=== PATIENT | male | born 1940 | race Caucasian/White ===

== ENCOUNTER 2016-11-01 21:48 | Inpatient (IN) | payer OTHER ==
--- NOTE | ~2016-11-01 | FU ---
[facility] Nutrition Therapy DATE: 11/05/16 Patient: LILLIAN ALBERT Physician: YUDITH Address: [address] [place] [address] Room/Bed: [address], Zip: [place] [address] Admit Date: 11/02/16 Date of : 39 Height: 5 10 Weight: 225 102.5 NUTRITION MONITORING/FOLLOW-UP: Reason: PT SEEN FOR FOLLOW-UP DX: CARDIAC ARREST, ACUTE RESP FAILURE Anthropometrics: 5'10", WT: 225# (102 KG), BMI: 32.3 -ADMIT WEIGHT: 105# Labs: K+:2.8, CA+:7.3, ALB: 2.6, AST: 368, ALT: 561, M.0, GFR: 58.0 Meds: PROPOFOL, NACL, FUROSEMIDE, PROTONIX, MAG SULFATE I&O's: 1100/5425 Skin: BLE/FEET 1+ EDEMA; BLE GENERALIZED EDEMA Estimated Nutrition Needs: [id number] KCAL 113-151 G PRO Assessment: CHART REVIEWED AND EVENTS NOTED. PT SEEN FOR FOLLOW-UP. PT CONTINUES TO BE INTUBATED AND SEDATED (PROPOFOL AT RATE OF 6.3 ML/HR PROVIDING ~166 KCAL FROM LIPIDS). ENTERAL NUTRITION SUPPORT HAS NOT BEEN INITIATED X 3 DAYS. PER RN AND CHART, POOR PROGNOSIS NOTED. NO FAMILY IN ROOM AT THIS TIME. RD TO CONTINUE TO FOLLOW. Dx: INADEQUATE PROTEIN-ENERGY INTAKE R/T VENT DEPENDENCE, CURRENT CONDITION AEB NPO.-ACTIVE Intervention: 1. NPO X 3 DAYS Monitoring, Evaluation and Goals: 1. ENTERAL NUTRITION; PROVIDE >80% TOTAL VOLUME X 24 HOURS-NOT MET/UNMEASURED 2. LABS; WNL-NOT MET 3. SKIN; PREVENT SKIN BREAKDOWN-IN PROGRESS MONITOR: -PLANS FOR SUPPORT -WEIGHTS -LABS Recommendations: 1. ONCE PT HEMODYNAMICALLY STABLE, BEGIN ALTERNATIVE NUTRITION SUPPORT VIA DHT OF JEVITY 1.5 @ 20 ML/HR, ADVANCE 10 ML q 8 HOURS TO GOAL RATE OF 45 ML/HR + SUGAR-FREE PROSTAT TID [facility] Nutrition Therapy DATE: 11/05/16 Patient: LILLIAN ALBERT Physician: YUDITH Address: [address] [place] [address] Room/Bed: [address], Zip: [place] [address] Admit Date: 11/02/16 Date of : 39 Height: 5 10 Weight: 225 102.5 + SEDATION -PROVIDES 2086 KCAL, 114 G PRO, 821 ML FREE H20 ADD FREE H20 FLUSHES PER MD RD WILL F/U PER PROTOCOL PT IS SEVERELY COMPROMISED Status: Respectfully, Chandra Stallings, RD, LD [facility] cc: client file
--- NOTE | ~2016-11-01 | CR72 ---
[facility] A Service of [facility] & [facility] RADIOLOGY TEXT RESULTS PATIENT: LILLIAN ALBERT LOCATION: [place] [address]-03 : 39 UNIT #: [id number] AGE: [address]: Latisha Guido MD SEX: M ORDER DR: [id number] [facility] [address]. [place], [place] [address] [id number] I MR#: [id number] Acc #: [id number] NAME: LILLIAN ALBERT : 1940 SEX: M STUDY DATE/TIME: 11/02/2016 6:44 UNIT: [facility] ROOM: [facility] STUDY DESCRIPTION: CR Chest Single View Portable Attending Physician: Latisha Guido M.D. Ordering Physician: Moshe Lancaster M.D. Primary Care Physician: Dayo Valle M.D. MEDICAL IMAGING REPORT This report is preliminary unless electronic signature is present EXAM Portable chest 11/02/2016 HISTORY Respiratory failure, intubated, follow up infiltrates. FINDINGS The cardiac and mediastinal structures are stable compared with 11/02/2016 at 12:41 a.m. There has been no change in the position of the life support equipment. Atelectatic changes at the lung bases. Lungs are otherwise clear. There are no pleural effusions. IMPRESSION No interval change compared with the previous chest radiograph performed earlier today at 12:41 a.m. Dictated by... Hakan Natarajan M.D. THIS IS AN ELECTRONICALLY VERIFIED REPORT Hakan Natarajan M.D. at 11/02/2016 11:22 AM ACE/katie TD: 11/02/2016 09:55 JOB #: [id number] MEDICAL IMAGING REPORT Page 1 of 1 COPY
--- NOTE | ~2016-11-01 | EKG ---
PATIENT: LILLIAN ALBERT UNIT #: [id number] Ventricular Rate: 102 BPM Atrial Rate: 49 BPM QRS Duration: 86 ms Q-T Interval: 380 ms QTC Calculation(Bezet): 495 ms Calculated R [place]: 7 degrees Calculated T [place]: 170 degrees Diagnosis Line: Atrial fibrillation with rapid ventricular Diagnosis Line: response Diagnosis Line: Low voltage QRS Diagnosis Line: T wave abnormality, consider anterior ischemia or Diagnosis Line: digitalis effect Diagnosis Line: Prolonged QT Diagnosis Line: Abnormal ECG Diagnosis Line: No previous ECGs available Diagnosis Line: Confirmed by KOKI DOWNING MD ([id number]) on Diagnosis Line: 11/04/2016 10:46:32 AM INTERPRETING MD: ROSSANA
--- NOTE | ~2016-11-01 | EKG ---
PATIENT: LILLIAN ALBERT UNIT #: [id number] Ventricular Rate: 106 BPM Atrial Rate: 106 BPM P-R Interval: 196 ms QRS Duration: 108 ms Q-T Interval: 360 ms QTC Calculation(Bezet): 478 ms P [place]: 78 degrees Calculated R [place]: 20 degrees Calculated T [place]: 91 degrees Diagnosis Line: Sinus tachycardia with frequent Premature Diagnosis Line: ventricular complexes Diagnosis Line: Low voltage QRS Diagnosis Line: Nonspecific ST and T wave abnormality Diagnosis Line: Abnormal ECG Diagnosis Line: No previous ECGs available Diagnosis Line: Confirmed by MAI ELMORE MD ([id number]) on 11/03/2016 Diagnosis Line: 5:36:51 AM INTERPRETING MD: CATARINA MELARA
--- NOTE | ~2016-11-01 | CT69 ---
[facility] A Service of [facility] RADIOLOGY TEXT RESULTS PATIENT: LILLIAN ALBERT LOCATION: CICCU2 CICCU2 : 38 UNIT #: [id number] AGE: [address]: Latisha Guido MD SEX: M ORDER DR: [id number] [facility] [address]. [place], [place] [address] [id number] E MR#: [id number] Acc #: [id number] NAME: LILLIAN ALBERT : 1940 SEX: M STUDY DATE/TIME: 11/01/2016 23:59 UNIT: [facility]ER[facility] ROOM: STUDY DESCRIPTION: CT Head W Contrast Attending Physician: Moshe Lancaster M.D. Ordering Physician: Moshe Lancaster M.D. Primary Care Physician: Dayo Valle M.D. MEDICAL IMAGING REPORT This report is preliminary unless electronic signature is present EXAM CT head with contrast INDICATION Cardiac arrest tonight. PROCEDURE Contrast-enhanced CT of the head. This CT exam was performed with one or more of the following radiation dose reduction techniques: automatic exposure control, adjustment of mA and/or kV according to patient size, and iterative reconstruction. COMPARISON None. FINDINGS No hemorrhage when allowing for presence of contrast. No midline shift, extraaxial collection or hydrocephalus. No convincing evidence for an acute early subacute large territory infarct. 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 No depressed calvarial fracture. The paranasal sinuses and mastoid air cells are clear. IMPRESSION No acute intracranial findings. No abnormal intracranial enhancement. Dictated by... Gerson Eden M.D. THIS IS AN ELECTRONICALLY VERIFIED REPORT Gerson Edne M.D. at 11/02/2016 10:01 PM [facility] A Service [facility] RADIOLOGY TEXT RESULTS PATIENT: LILLIAN ALBERT LOCATION: CICCU2 CICCU2 : 39 UNIT #: [id number] AGE: [address]: Latisha Guido MD SEX: M ORDER DR: AL/keily TD: 11/02/2016 00:54 JOB #: [id number] MEDICAL IMAGING REPORT Page 1 of 1 COPY
--- NOTE | ~2016-11-01 | DS ---
Unit #: [id number] #: [id number] Patient: LILLIAN ALBERT [id number] [facility] [address] [place], [place] [address] [id number] I MR#: [id number] NAME: LILLIAN ALBERT ROOM: 229 Age: 76 Sex: M Admission Date: 11/02/2016 : 1940 Discharge Date: 11/10/2016 Attending Physician: Latisha Guido M.D. Primary Care Physician: Dayo Valle M.D. DISCHARGE SUMMARY SUMMARY FINAL DIAGNOSES 1. Status post cardiac arrest. 2. Acute respiratory failure. 3. Anoxic brain injury. 4. Non ST elevation myocardial infarction. 5. Left ventricular dysfunction ejection fraction of 10%. 6. Systolic congestive heart failure. 7. Aspiration pneumonia. 8. Acute kidney injury. HOSPITAL COURSE Patient was discharge from [facility] after having aortic aneurysm repair done. Patient had complex intravascular repair and discharged on 10/24/2016. The patient was doing well until the day before admission to our hospital. He suddenly complained of shortness of breath and passed out. The patient was resuscitated and was brought to the emergency room at [facility] and was admitted in ICU. The patient's admitting diagnosis was resuscitated V-tach arrest, status post shock, acute non Q VT, acute hypoxic respiratory failure, aspiration and likely anoxic brain injury. Patient was admitted to ICU. The patient's was discussed with at length. Patient's decided for DNR status and he on 11/10/2016. All throughout hospital she was very much aware of patient's poor prognosis and critical admission on admission to hospital. Dictated by... Padmini Maria TD: 12/15/2016 13:15 JOB #: [id number] Unit #: [id number] #: [id number] Patient: LILLIAN ALBERT DISCHARGE SUMMARY Page 1 of 1 X Latisha Guido MD DISCHARGE SUMMARY
--- NOTE | ~2016-11-01 | CT71 ---
[facility] A Service of [facility] & [facility] RADIOLOGY TEXT RESULTS PATIENT: LILLIAN ALBERT LOCATION: [address] : [birth year] UNIT #: [id number] AGE: [address]: Latisha Guido MD SEX: M ORDER DR: [id number] [facility] [address] [place], [place] [address] [id number] I MR#: [id number] Acc #: [id number] NAME: LILLIAN ALBERT : 1940 SEX: M STUDY DATE/TIME: 11/05/2016 13:16 UNIT: [facility] ROOM: [facility] STUDY DESCRIPTION: CT Head Wo Contrast Attending Physician: Latisha Guido M.D. Ordering Physician: Christina Dooley A.P.R.N. Primary Care Physician: Dayo Valle M.D. MEDICAL IMAGING REPORT This report is preliminary unless electronic signature is present EXAM CT of the head without contrast. INDICATIONS Anoxic brain injury, patient in full arrest. He has sluggish pupils. This is a re-scan. His original CT was performed on November 01, 2016. It did not show any acute findings. TECHNIQUE Axial CT imaging was obtained from the vertex of the skull through the skull base. No intravenous contrast material was administered. This CT exam was performed with one or more of the following radiation dose reduction techniques: automatic exposure control, adjustment of mA and/or kV according to patient size, and iterative reconstruction. FINDINGS No acute intracranial hemorrhage is identified. This patient is noted have diffuse cerebral atrophy with compensatory ventricular dilatation which is in keeping with the age of 76. There is some mild periventricular deep white matter microangiopathic disease, but the patient does appear to maintain normal jeffrey-white matter differentiation. There is evidence of an old infarct involving the left basal ganglia. This appears unchanged when compared to the prior exam. No new areas of decreased attenuation are seen. There is no midline shift or mass effect. There is some atherosclerotic involvement of the cavernous carotid arteries. There is some mucosal thickening seen within the ethmoid sinuses as well as within the sphenoid sinuses bilaterally. Mastoid air cells appear clear. No aggressive osseous abnormalities are seen and there are no focal soft tissue abnormalities. IMPRESSION [facility] A Service of [facility] & [facility] RADIOLOGY TEXT RESULTS PATIENT: LILLIAN ALBERT LOCATION: [facility] CICCU2-03 : 39 UNIT #: [id number] AGE: [address]: Latisha Guido MD SEX: M ORDER DR: 1. No acute intracranial process identified. Specifically, there is no evidence of acute hemorrhage, mass lesion or acute infarct. 2. Diffuse cerebral atrophy, as well as an area of encephalomalacia identified within the left basal ganglia. This is unchanged when compared to the November 01 examination. Dictated by... Paulina Ritchie M.D. THIS IS AN ELECTRONICALLY VERIFIED REPORT Paulina Ritchie M.D. at 11/06/2016 2:48 PM AFF/japple TD: 11/05/2016 21:16 JOB #: [id number] MEDICAL IMAGING REPORT Page 1 of 1 COPY
--- NOTE | ~2016-11-01 | CT2 ---
[facility] A Service of [facility] & [facility] RADIOLOGY TEXT RESULTS PATIENT: LILLIAN ALBERT [facility] 39 UNIT #: [id number] AGE: [address]: Latisha Guido MD SEX: M ORDER DR: [id number] [facility] [address]. [place], [place] [address] [id number] E MR#: [id number] Acc #: [id number] NAME: LILLIAN ALBERT : 1940 SEX: M STUDY DATE/TIME: 11/01/2016 22:37 UNIT: [facility] ROOM: STUDY DESCRIPTION: CT Abd and Pelv W Cont Attending Physician: Moshe Lancaster M.D. Ordering Physician: Moshe Lancaster M.D. Primary Care Physician: Dayo Valle M.D. MEDICAL IMAGING REPORT This report is preliminary unless electronic signature is present EXAM CT abdomen and pelvis with contrast INDICATIONS Cardiac arrest tonight. Patient status post iliac stent surgery one week ago. PROCEDURE Contrast-enhanced CT of the abdomen and pelvis. This CT exam was performed with one or more of the following radiation dose reduction techniques: automatic exposure control, adjustment of mA and/or kV according to patient size, and iterative reconstruction. COMPARISON Refer to the separately dictated chest CT for thoracic findings. ABDOMEN WITH CONTRAST: Liver and spleen show no acute abnormality. Adrenal glands unremarkable. Pancreas atrophic. There is mild pericholecystic fluid as well as periportal edema. Portal vein is patent. Bowel loops are nondilated. Kidneys show heterogeneous enhancement pattern. Chronicity of this finding is not clear. Patient is status post stent repair of an abdominal aortic aneurysm. There are stents in the proximal superior mesenteric and renal arteries. Aneurysm sac measures up to 6.8 cm. There is some enhancement within the aneurysm sac suggesting an endoleak. Stents extend into the iliac vessels. PELVIS WITH CONTRAST: Bladder decompressed by a Arrington catheter. Postsurgical change in the right and left inguinal regions. There is a small fluid collection in the left inguinal region that measures approximately 4 cm. No aggressive-appearing bone lesion. STS. [facility] A Service of [facility] & [facility] RADIOLOGY TEXT RESULTS PATIENT: LILLIAN ALBERT LOCATION: [facility] CICCU2-03 : 39 UNIT #: [id number] AGE: [address]: Latisha Guido MD SEX: M ORDER DR: IMPRESSION 1. The patient is status post stent graft repair of an infrarenal abdominal aortic aneurysm. There is some apparent enhancement in the aneurysm sac suggesting an endoleak. There is no precontrast imaging with this study. 2. The aneurysm sac measures 6.8 cm in diameter. No prior studies for comparison. 3. Skin jerry in the right left inguinal regions. There is a collection in the left inguinal region that measures up to 4 cm. It may be within recent postoperative limits. 4. Heterogeneous enhancement pattern of the kidneys, of uncertain chronicity. 5. Refer to the separately dictated chest CT for thoracic findings. Dictated by... Gerson Eden M.D. THIS IS AN ELECTRONICALLY VERIFIED REPORT Gerson Eden M.D. at 11/02/2016 10:01 PM AL/keily TD: 11/02/2016 00:44 JOB #: [id number] MEDICAL IMAGING REPORT Page 1 of 1 COPY
--- NOTE | ~2016-11-01 | CO ---
Unit #: [id number] #: [id number] Patient: LILLIAN ALBERT [id number] [facility]. [address] [place], [place] [address] [id number] I MR#: [id number] NAME: LILLIAN ALBERT ROOM: CIC2 Age: 76 Sex: M Admission Date: 11/02/2016 : 1940 Attending Physician: Latisha Guido M.D. Primary Care Physician: Dayo Valle M.D. CONSULTATION REPORT REVISED/ADDENDED REASON FOR CONSULTATION Assistance with management for resuscitated ventricular fibrillation arrest. HISTORY OF PRESENT ILLNESS This is a 76-year-old white male who has a history of recently diagnosed with follicular lymphoma. It is metastatic but slow growing. October 20, 2016, had abdominal aortic aneurysm repair that was 6.8 cm and an endovascular repair with Endograft to renal arteries bilaterally and crossing an occluded external iliac done by Merlin Kent M.D. with [facility]. The patient was discharged on October 24, 2016. Records that were obtained from that facility reports that he was seen by Dr. Lalito Wilcox, stereo operator, due to having an elevated troponin. There is no other indications of any other testing or information from a cardiac standpoint. Information is provided by the staff records and by the over the telephone today. The patient is currently intubated and unable to answer questions. According to the , this past Wednesday he was doing well. He had physical therapy come to the house and he had home health nurse evaluate him and he was doing well. On Wednesday, the noticed he was acting a little confused and seemed to be weak. Yesterday, he woke up and he continued to be confused, increased periods of confusion, and she said she noticed his breathing was becoming more labored. As the day progressed, his dyspnea worsened. She called EMS. When they arrived, patient was becoming obtunded. They did witness a ventricular fibrillation arrest. He was shocked x1 and had a total of 4 mg of IV epi. They successfully returned rhythm to sinus rhythm. From the , there is no indication that he is having any chest pain, pain in his neck, bilateral jaws, shoulders, arms, or elbows. There is no indication he was dizzy, presyncope, or syncope. She did not know of any increased cough, fever, or chills he was experiencing. No nausea, vomiting, diarrhea, or abdominal pain. Cardiology has been consulted to assist with evaluation and management. The patient is in intensive care unit. He is intubated and poorly responsive. PAST MEDICAL HISTORY 1. History of follicular lymphoma, is metastatic, slow growing. 2. Diabetes mellitus type 2. 3. Hypertension. 4. Hyperlipidemia. 5. COPD. 6. Nicotine abuse. Unit #: [id number] #: [id number] Patient: LILLIAN ALBERT 7. BPH. 8. Gastroesophageal reflux disease. 9. Vitamin D deficiency. 10. October 20, 2016, patient had an abdominal aortic aneurysm repair that was 6.8 cm, endovascular repair with Endograft to the renal arteries bilaterally and crossing an occluded external iliac. 11. Coronary artery disease, reported that increased troponin during hospitalization at [facility], October 20 to October 24, 2016. Had been followed by Dr. Lalito Wilcox, cardiology. 12. History of a solitary pulmonary nodule. 13. History of anemia. 14. History of paroxysmal supraventricular tachycardia. 15. History of paroxysmal atrial fibrillation. According to , he was told his heartbeat gets irregular. He was on Eliquis. 16. Peripheral vascular disease. 17. Peripheral arterial disease. 18. History of alcohol abuse but occasionally drinks a scotch but nothing heavily. 19. Reported quit smoking but was having occasional cigarette. PAST SURGICAL HISTORY 1. October 20, 2016, had abdominal aortic aneurysm. The procedure was a bilateral femoral cutdown and left axillary cutdown, SMA stent, [place] EVAR with bilateral renal artery stent grafts repair of left internal iliac aneurysm with a GORE VALENTIN stent grafts left internal iliac stent extension cuff left common iliac extension cuff left external iliac Viabahn stent. 2. Cataract surgery. 3. Appendectomy. 4. Tonsillectomy. 5. Vasectomy. 6. Umbilical hernia repair. HOME MEDICATIONS 1. Aspirin 81 mg p.o. daily. 2. Zyloprim 100 mg p.o. daily. 3. Hydrocodone/acetaminophen 10/325 one tablet p.o. every six hours p.r.n. 4. Tradjenta 5 mg p.o. daily. 5. Protonix 40 mg p.o. daily. 6. Crestor 20 mg p.o. daily. 7. Flomax 0.4 mg p.o. daily. 8. Vitamin D3 of 50,000 units p.o. once weekly. 9. Albuterol every four hours p.r.n. 10. Ventolin two puffs inhalation twice daily p.r.n. for shortness of breath. 11. Alprazolam 1 mg p.o. twice daily. 12. Eliquis 5 mg p.o. twice daily. 13. Carvedilol 3.125 mg every 12 hours. 14. Duloxetine 60 mg p.o. daily. 15. Glucophage 1000 mg p.o. twice daily. 16. Montelukast 10 mg p.o. at bedtime. 17. Rythmol 150 mg every eight hours. 18. Daliresp 500 mg p.o. daily. ALLERGIES No known drug allergies. Unit #: [id number] #: [id number] Patient: LILLIAN ALBERT SOCIAL HISTORY The patient lives with his spouse. Patient reportedly had quit smoking about four months ago but the says he has occasional cigarettes but nothing heavy. He used to be a heavy drinker, used to drink scotch and wine but now only has an occasional drink, does not have something every day. No illicit drug abuse. FAMILY HISTORY Unavailable. REVIEW OF SYSTEMS See details in HPI. PHYSICAL EXAMINATION GENERAL: On exam, Mr. Albert is a 76-year-old white male. He is intubated. Sedation has been turned off. He is myoclonic. Has myoclonic activity. Dictated by... Imelda RodgersPKerriRKerriN. for Georgina Harrison M.D. LYLY/torie TD: 11/02/2016 16:52 JOB #: [id number] ADDENDUM Dr. Chiang, the complaint evaluation officer, had a long discussion with the and the son. He explained to them that the patient is critically ill and likely has some anoxic brain injury and he may not survive this hospitalization. Neurology and cardiology were consulted for this reason. We will continue to monitor his cardiac enzymes and EKG. At this point, will not proceed with any intervention due to his being unstable. Patient currently is not on a pressor. His blood pressures are ranging 100-110s systolically. Patient is on IV antibiotics. The sedation has been turned off to assess his mental status. As mentioned, we have started the patient on Lovenox 1 mg/kg subcu. daily for anticoagulation for the acute non-STEMI. Urine and blood cultures are pending. Patient, as mentioned, may have (1) . Will obtain further records from [facility], Dr. Lalito Wilcox, if he has done any type of ischemic heart disease workup, but, according to the , she denies him ever having a heart catheterization. Will try to obtain recent 2D echo, stress test, and his latest office notes, H and P. Will obtain a 2D echo to evaluate patient's LV function and valves and especially since he had an arrest. IMPRESSION Please add: Probable UTI. Thank you very much for allowing us to assist in the care. Further recommendations pending per Dr. Harrison. Unit #: [id number] #: [id number] Patient: LILLIAN ALBERT Dictated by... Marline Abraham A.P.R.N. for Padmini Mckeon/tessa TD: 11/03/2016 06:32 JOB #: [id number] CONSULTATION REPORT Page 1 of 1 X Marline Abraham APRN CONSULTATION REPORT
--- NOTE | ~2016-11-01 | CR72 ---
[facility] A Service of [facility] RADIOLOGY TEXT RESULTS PATIENT: LILLIAN ALBERT LOCATION: CICCU2 CICCU06-12 : 38 UNIT #: [id number] AGE: [address]: Latisha Guido MD SEX: M ORDER DR: [id number] [facility] [address] [place], [place] [address] [id number] I MR#: [id number] Acc #: [id number] NAME: LILLIAN ALBERT : 1940 SEX: M STUDY DATE/TIME: 11/02/2016 0:41 UNIT: CEDOF ROOM: [id number] STUDY DESCRIPTION: CR Chest Single View Portable Attending Physician: Latisha Guido M.D. Ordering Physician: Moshe Lancaster M.D. Primary Care Physician: Dayo Valle M.D. MEDICAL IMAGING REPORT This report is preliminary unless electronic signature is present EXAM Portable chest INDICATION Central line placement. PROCEDURE Frontal view chest. COMPARISON 11/01/2016 FINDINGS Right IJ approach catheter is at the cavoatrial junction. No visible pneumothorax. ET tube is unchanged. IMPRESSION Right IJ catheter at the cavoatrial junction. No pneumothorax, otherwise stable. Dictated by... Gerson Eden M.D. THIS IS AN ELECTRONICALLY VERIFIED REPORT Greson Eden M.D. at 11/02/2016 10:01 PM EED/keily TD: 11/02/2016 01:54 JOB #: [id number] MEDICAL IMAGING REPORT [facility] A Service of [facility] RADIOLOGY TEXT RESULTS PATIENT: LILLIAN ALBERT LOCATION: CICCU2 CICCU2 : 38 UNIT #: [id number] AGE: [address]: Latisha Guido MD SEX: M ORDER DR: Page 1 of 1 COPY
--- NOTE | ~2016-11-01 | CO ---
Unit #: [id number] #: [id number] Patient: LILLIAN ALBERT [id number] [address] [place], [place] [address] [id number] I MR#: [id number] NAME: LILLIAN ALBERT ROOM: [facility] Age: 76 Sex: M Admission Date: 11/02/2016 : 1940 Attending Physician: Latisha Guido M.D. Primary Care Physician: Dayo Valle M.D. CONSULTATION REPORT REASON FOR CONSULTATION Critical care management, cardiac arrest. CHIEF COMPLAINT Cardiac arrest. HISTORY OF PRESENT ILLNESS This patient basically is 76-year-old male who has a recent past medical history of abdominal aortic aneurysm endovascular repair at [facility], presented with a complaint of shortness of breath tonight. According to patient's , all of a sudden complained of shortness of breath and went into respiratory distress and was found pulseless, intubated and resuscitated. Currently, patient is on a ventilator, having myoclonic jerks and is unresponsive. Has undergone CT of chest, abdomen and pelvis. I am seeing him at the bedside. He is unresponsive. REVIEW OF SYSTEMS Unobtainable. PAST MEDICAL HISTORY 1. Abdominal aortic aneurysm recent repair. 2. Follicular lymphoma, grade 1. 3. Anemia. 4. Solitary pulmonary nodule. 5. Peripheral vascular disease. 6. COPD. 7. Major depressive disorder. 8. Attention deficit. 9. Hyperactivity disorder. 10. Essential hypertension. 11. Dyslipidemia. 12. Irritable bowel syndrome. 13. Vitamin D deficiency. PAST SURGICAL HISTORY 1. Umbilical hernia. 2. Appendectomy. 3. Eye surgery. 4. Tonsillectomy. SOCIAL HISTORY Smoker, one pack per day. Used to smoke, quit four months ago. Doesn't drink alcohol. Unit #: [id number] #: [id number] Patient: LILLIAN ALBERT FAMILY HISTORY Unavailable. IMMUNIZATION Influenza in 2016. ALLERGIES No known drug allergies. MEDICATIONS 1. Ambien. 2. Spiriva. 3. Tradjenta. 4. Daliresp. 5. Rosuvastatin. 6. Montelukast. 7. Pantoprazole. 8. Coreg. 9. Allopurinol. 10. Eliquis. 11. Alprazolam. 12. Metformin. 13. Hydrocodone. PHYSICAL EXAMINATION GENERAL: Currently unresponsive. VITAL SIGNS: Blood pressure 130/70, temperature 98, pulse 16. CVS: S1+ S2. RESPIRATIONS: Bilateral air entry, bilateral mild rhonchi. GI: Nontender, soft. Bowel sounds positive. EXTREMITIES: Positive edema. SKIN: No rashes. LYMPHATIC: No lymphadenopathy. DIAGNOSTIC STUDIES LABORATORY: Blood gas showed pH 7.27, pCO2 38, pO2 148. FIO2 is 60. Creatinine 1.1, BUN 10, glucose 167, sodium 131, calcium 3.4, bicarb 20, white count is 19, hemoglobin 8, hematocrit 27, platelet count 415. UA shows leukocytes 3+ and positive nitrites. ASSESSMENT AND PLAN 1. Acute respiratory failure. 2. Altered mental status, likely anoxic brain injury. 3. Cardiac arrest. 4. Status post endovascular repair of abdominal aneurysm. 5. Chronic obstructive pulmonary disease. 6. Likely urinary tract infection. 7. Possible aspiration. Plan is to admit the patient. Continue ventilator support. Continue broad spectrum IV antibiotics, bronchodilator, IV fluids. 2D echo. Troponin. Will continue IV fluids and follow cultures. GI and DVT prophylaxis. Discussed with the patient and family at the bedside. I explained that patient will not survive this hospitalization most likely. He is Unit #: [id number] #: [id number] Patient: LILLIAN ALBERT critically ill and likely has significant anoxic injury. Will need neurological consultation and cardiology consultation. I would like to thank Dr. Marya Acuña for her kind consideration to involve me in taking care of this patient. Dictated by... Padmini Hay/rios TD: 11/02/2016 05:55 JOB #: [id number] CONSULTATION REPORT Page 1 of 1 X Jose M Chiang MD X CONSULTATION REPORT
--- NOTE | ~2016-11-01 | CR7 ---
[facility] A Service of [facility] & [facility] RADIOLOGY TEXT RESULTS PATIENT: LILLIAN ALBERT LOCATION: [address] : [birth year] UNIT #: [id number] AGE: [address]: Latisha Guido MD SEX: M ORDER DR: [id number] [facility] [address] [facility] [place], [place] [address] [id number] I MR#: [id number] Acc #: [id number] NAME: LILLIAN ALBERT : 1940 SEX: M STUDY DATE/TIME: 11/02/2016 13:37 UNIT: [facility] ROOM: [facility] STUDY DESCRIPTION: CR Abdomen Single AP View Attending Physician: Latisha Guido M.D. Ordering Physician: Latisha Guido M.D. Primary Care Physician: Dayo Valle M.D. MEDICAL IMAGING REPORT This report is preliminary unless electronic signature is present EXAM Supine radiograph abdomen. HISTORY Dobbhoff tube placement. FINDINGS Supine radiograph of the abdomen is presented. Please see today's earlier chest radiograph for discussion of findings above diaphragm. There is a flexible feeding tube which terminates in the proximal third of the stomach pointed leftward and upward. For placement in xjx-pj-hmsgve stomach it could be advanced about 10-15 cm and reassessed radiographically. The visualized bowel gas pattern is normal. There is no free air. Patient appears to be status post endovascular stent graft repair of abdominal aortic aneurysm. The partially visualized stent graft appears radiographically intact. No acute-appearing bony abnormality. Dictated by... Joseph Odell M.D. THIS IS AN ELECTRONICALLY VERIFIED REPORT Joseph Odell M.D. at 11/03/2016 5:40 PM CAMMIE/doris TD: 11/02/2016 22:53 JOB #: [id number] MEDICAL IMAGING REPORT Page 1 of 1 COPY
--- NOTE | ~2016-11-01 | CR72 ---
[facility] A Service of [facility] RADIOLOGY TEXT RESULTS PATIENT: LILLIAN ALBERT LOCATION: [place] [id number] : [birth year] UNIT #: [id number] AGE: [address]: Latisha Guido MD SEX: M ORDER DR: [id number] [facility] [address] [facility]. [place], [place] [address] [id number] I MR#: [id number] Acc #: [id number] NAME: LILLIAN ALBERT : 1940 SEX: M STUDY DATE/TIME: 11/01/2016 22:14 UNIT: [facility] ROOM: [facility] STUDY DESCRIPTION: CR Chest Single View Portable Attending Physician: Latisha Guido M.D. Ordering Physician: Moshe Lancaster M.D. Primary Care Physician: Dayo Valle M.D. MEDICAL IMAGING REPORT This report is preliminary unless electronic signature is present EXAM Portable chest, 11/01/2016 HISTORY 76-year-old male with cardiac arrest tonight. Endotracheal tube placement. Respiratory distress. COMPARISON Chest 11/03/2012 FINDINGS 2 frontal views of the chest demonstrates placement of an endotracheal tube. The tip projects 6.8 cm above the alba. No pneumothorax. Bibasilar atelectasis/infiltrate. Mild cardiomegaly. Mediastinum unremarkable. Mild central vascular congestion. IMPRESSION 1. Endotracheal tube tip projects 6.8 cm above the alba. No pneumothorax. 2. Cardiomegaly with mild central vascular congestion. 3. Mild bibasilar atelectasis/infiltrate. Dictated by... Gama Ochoa M.D. THIS IS AN ELECTRONICALLY VERIFIED REPORT Gaam Ochoa M.D. at 11/04/2016 1:34 PM LEELA/keily TD: 11/01/2016 23:12 JOB #: [id number] [facility] A Service [facility] RADIOLOGY TEXT RESULTS PATIENT: LILLIAN ALBERT [facility] [birth year] UNIT #: [id number] AGE: [address]: Latisha Guido MD SEX: M ORDER DR: MEDICAL IMAGING REPORT Page 1 of 1 COPY
--- NOTE | ~2016-11-01 | OR ---
Unit #: [id number] #: [id number] Patient: LILLIAN ALBERT [id number] [address] [address] [id number] I MR#: [id number] NAME: LILLIAN ALBERT ROOM: [facility] Date of Procedure: Admission Date: 11/02/2016 Surgeon: Jose M Chiang M.D. : 1940 Attending Physician: Latisha Guido M.D. Primary Care Physician: Dayo Valle M.D. PROCEDURE OPERATIVE NOTE PROCEDURE PERFORMED Right subclavian central venous catheter insertion. INDICATION Shock. PRE-PROCEDURE DIAGNOSIS Shock. POST-PROCEDURE DIAGNOSIS Shock. DETAILS OF THE PROCEDURE After placing patient in proper position with all aseptic technique, the right side of the chest was prepped with ChloraPrep and triple lumen central venous catheter inserted in the right subclavian vein with modified Seldinger technique. The guidewire was removed in toto. All three ports flushed and working. The line was secured with two interrupted sutures in place. No complications happened. The patient tolerated the procedure very well. Post-procedure chest x-ray was ordered. Dictated by... Padmini Hay/rios TD: 11/02/2016 06:07 JOB #: [id number] Unit #: [id number] #: [id number] Patient: LILLIAN ALBERT PROCEDURE OPERATIVE NOTE Page 1 of 1 X Jose M Chiang MD X PROCEDURE OPERATIVE NOTE
--- NOTE | ~2016-11-01 | CT16 ---
[facility] A Service of [facility] RADIOLOGY TEXT RESULTS PATIENT: LILLIAN ALBERT LOCATION: [facility]2 CICCU2-03 : [birth year] UNIT #: [id number] AGE: [address]: Latisha Guido MD SEX: M ORDER DR: [id number] [facility] [address] [facility]. [place], [place] [address] [id number] E MR#: [id number] Acc #: [id number] NAME: LILLIAN ALBERT : 1940 SEX: M STUDY DATE/TIME: 11/01/2016 23:43 UNIT: [facility] ROOM: STUDY DESCRIPTION: CT Angio Chest for PE Attending Physician: Moshe Lancaster M.D. Ordering Physician: Moshe Lancaster M.D. Primary Care Physician: Dayo Valle M.D. MEDICAL IMAGING REPORT This report is preliminary unless electronic signature is present EXAM CTA chest PE protocol INDICATIONS Cardiac arrest tonight. PROCEDURE Contrast-enhanced CTA of the chest attention on opacification of the pulmonary arteries. Coronal 3-D MIP sagittal reformatted images reconstructed and submitted. This CT exam was performed with one or more of the following radiation dose reduction techniques: automatic exposure control, adjustment of mA and/or kV according to patient size, and iterative reconstruction. COMPARISON None. FINDINGS No convincing evidence for pulmonary embolus. Respiratory motion somewhat degrades evaluation of the peripheral pulmonary arteries. Coronary artery calcification. No pericardial fluid. Patient is intubated. Scattered areas of atelectasis in both lungs. Small right pleural effusion. No aggressive appearing bone lesion when allowing for respiratory motion. IMPRESSION 1. Coronary artery calcification. 2. No evidence for pulmonary embolus. 3. Scattered areas of atelectasis, most significant in the lung bases as well as a small right pleural effusion. [facility] A Service [facility] RADIOLOGY TEXT RESULTS PATIENT: LILLIAN ALBERT LOCATION: CICCU2 CICCU2-03 : [birth year] UNIT #: [id number] AGE: [address]: Latisha Guido MD SEX: M ORDER DR: Dictated by... Gerson Eden M.D. THIS IS AN ELECTRONICALLY VERIFIED REPORT Gerson Eden M.D. at 11/02/2016 10:01 PM AL/keily TD: 11/02/2016 00:51 JOB #: [id number] MEDICAL IMAGING REPORT Page 1 of 1 COPY
--- NOTE | ~2016-11-01 | A ---
[facility] Nutrition Therapy DATE: 11/02/16 Patient: LILLIAN ALBERT Physician: YUDITH Address: [address] [place] [address] Room/Bed: [address], Zip: [place] [address] Admit Date: 11/02/16 Date of : [birth year] Height: 5 10 Weight: 231 105 NUTRITIONAL ASSESSMENT: REASON: NPO in ICU, Intubated PMH: 76 yo male admitted for cardiac arrest Anthropometrics: Ht: 5'10" Wt: 105 kg BMI: 33.2 IBW: 75.4 kg Labs: Na+ 134 Creat 1.6 Ca++ 8.0 Alb 2.9 AST 468 ALT 201 GFR 41 Meds: NaCl, protonix, D5%, levophed, NaCl I/O & Bowel function: 06/08, last BM unknown Skin Integrity: [place] BL femoral/ left axillary Bruising right lateral thigh Redness to BL heels Edema: Generalized BL feet Estimated Nutrition Needs: 5627-0689 kcals (15-20 kcals/kg ABW) 113-151 grams protein (113-151 grams/kg IBW) Assessment: Chart reviewed, events noted. 76 yo male admitted for cardiac arrest and acute respiratory failure. Pt is intubated and sedated in the ICU. Propofol is off at this time per RN report. No plans for nutrition support at this time. Of note, the pt has a h/o DM in the chart, blood glucose WNL and no accuchecks obtained at this time. Please see recommendations below. Dx: Inadequate protein-energy intake RT ventilator dependence, clinical condition AEB NPO status. Intervention: 1. Enteral nutrition once appropriate Monitoring, Evaluation and Goals: 1. Enteral nutrition; initiate if appropriate, provide >80% goal volume x 24 hrs 2. Improve labs; Na+, creat, AST, ALT, GFR 3. Skin; prevent breakdown [facility] Nutrition Therapy DATE: 11/02/16 Patient: LILLIAN ALBERT Physician: YUDITH Address: [address] [place] [address] Room/Bed: [address], Zip: [place] [address] Admit Date: 11/02/16 Date of : [birth year] Height: 5 10 Weight: 231 105 Recommendations: 1. Once the pt is hemodynamically stable, consider initiating enteral nutrition with Jevity 1.5 @ 20 mL/hr + 30 mL Prostat TID. Increase by 10 mL q 8 hrs as tolerated to goal of 45 mL/hr + 30 mL Prostat TID to provide: 1920 kcals/ 114 grams protein/ 821 mL free H20. 2. Obtain HgbA1C due to the pt's h/o DM in chart. Pt is at moderate-severe nutritional risk. RD will follow hospital course per protocol. Respectfully, ANNITA CORONADO RD, LD [employer] and [employer] [facility] cc: client file
--- NOTE | ~2016-11-01 | CR72 ---
[facility] A Service of [facility] & [facility] RADIOLOGY TEXT RESULTS PATIENT: LILLIAN ALBERT LOCATION: [address] : [birth year] UNIT #: [id number] AGE: [address]: Latisha Guido MD SEX: M ORDER DR: [id number] [facility] [address] [facility]. [place], [place] [address] [id number] I MR#: [id number] Acc #: [id number] NAME: LILLIAN ALBERT : 1940 SEX: M STUDY DATE/TIME: 11/02/2016 13:33 UNIT: [facility] ROOM: [facility] STUDY DESCRIPTION: CR Chest Single View Portable Attending Physician: Latisha Guido M.D. Ordering Physician: Latisha Guido M.D. Primary Care Physician: Dayo Valle M.D. MEDICAL IMAGING REPORT This report is preliminary unless electronic signature is present EXAM Portable chest x-ray, 11/02/2016 HISTORY Dobbhoff tube placement. Dobbhoff placement - two step today. FINDINGS AP radiograph of the chest is presented. Comparison from earlier on the same date. Endotracheal tube unchanged. Right subclavian central venous catheter unchanged. Interval placement of a small caliber feeding tube which terminates in the distal esophagus approximately 5 cm above the diaphragm. For placement of tip in ylu-ey-duvnrr stomach, the tube should be advanced approximately 20 cm and reassessed radiographically. The heart shows stable mild enlargement. Lung volumes slightly lower than on prior examination. Continued vascular congestion. There is a mild increase in linear interstitial markings bilaterally which may in part reflect the lower lung volumes and atelectasis and may in part reflect an increase in mild interstitial edema. Scarring or atelectatic changes at the left lung base. No pleural effusion or pneumothorax. IMPRESSION 1. Interval placement of small caliber enteric feeding tube which terminates in the distal esophagus approximately 5 cm above the diaphragm. Re-placement of tip in tae-va-aqiatc stomach. Tube should be advanced about 20 cm and reassessed radiographically. 2. Endotracheal tube and right subclavian central venous catheter unchanged. 3. Lung volumes lower than on prior study. Pulmonary vascular congestion persists. Increase in linear interstitial markings in the lungs may in part be reflection of atelectasis given the lower lung volumes and in part reflection of interstitial edema. There is no dense airspace disease. There is some atelectasis or scarring at the STS. [facility] A Service of [facility] & [facility] RADIOLOGY TEXT RESULTS PATIENT: LILLIAN ALBERT LOCATION: [address] : [birth year] UNIT #: [id number] AGE: [address]: Latisha Guido MD SEX: M ORDER DR: left lung base. No pleural effusion or pneumothorax. 4. Not mentioned above, there are surgical skin jerry in the left lateral thoracic body wall. Dictated by... Joseph Odell M.D. THIS IS AN ELECTRONICALLY VERIFIED REPORT Joseph Odell M.D. at 11/03/2016 5:40 PM CAMMIE/doris TD: 11/02/2016 22:35 JOB #: [id number] MEDICAL IMAGING REPORT Page 1 of 1 COPY
--- NOTE | ~2016-11-01 | CO ---
Unit #: [id number] #: [id number] Patient: LILLIAN ALBERT [id number] [facility] [address]. [place], [place] [address] [id number] MR#: [id number] NAME: LILLIAN ALBERT ROOM: CICCU2 Age: 76 Sex: M Admission Date: 11/02/2016 : 1940 Attending Physician: Latisha Guido M.D. Primary Care Physician: Dayo Valle M.D. Requesting Physician: Reggie Bueno M.D. Consultation Date: 11/02/2016 CONSULTATION REPORT REASON FOR CONSULTATION Altered mental status. Status post cardiac arrest. PATIENT IDENTIFICATION The patient is a 76-year-old unknown handedness male evaluated in ICU room 3 at [facility]. SOURCE OF INFORMATION Obtained from the patient's medical record as well as evaluation done by the rest of the care team. HISTORY OF PRESENT ILLNESS This is a 76-year-old unknown handedness male with a past medical history of hypertension, hyperlipidemia, peripheral vascular disease, chronic obstructive pulmonary disease and diabetes mellitus type 2, who presented to [facility] with resuscitated arrest, non-Q wave myocardial infarction. The patient was seen, evaluated and chart reviewed. Unable to obtain review of systems from the patient given his condition. He came in last night, apparently he was recently discharged from [facility] after having an abdominal aortic aneurysm repair done. Apparently it was a complex endovascular repair with parallel endograft to the renal arteries bilaterally. The patient was discharged on 10/24/2016. Apparently the patient was doing okay until yesterday, when he suddenly complained of shortness of breath and passed out. According to the medical record he was a witnessed arrest. He was found pulseless. He was intubated by EMS and resuscitated after 911 was called. I do not have all those details. Looking at the emergency room notes, apparently he was a witnessed arrest by EMS crew at 21:15 hours on 11/01/2016, and there was a report of chief complaint of shortness of air, so he may have called 911 himself. Again, I don't have those details. He was, again, resuscitated en route. In the emergency room he received Versed and fentanyl drip for sedation, which was stopped this morning. He received an amp of bicarb, 2 g of vancomycin, Tylenol per rectal, he received a g of Keppra IV and received 1 liter of normal saline bolus. He was admitted for acute respiratory failure, status post v-tac, v-fib arrest and acute hypoxic respiratory failure. Neurology was asked to further evaluate, given concern for possible anoxic brain injury as the patient is not appropriately responsive. His sedation was stopped this morning and he is over breathing the ventilator. On exam he, again, is over breathing the ventilator. He does have positive corneals. Pupils are equal but sluggish. He has positive oculocephalic reflex, but his gaze is disconjugate. He has decerebrate posturing bilaterally and also triple flexion noted in response to noxious Unit #: [id number] #: [id number] Patient: LILLIAN ALBERT. He does have some mild sternal myoclonus that gets worse with repeated stimulation on exam. CT of the head was done in the emergency room with contrast last night in the emergency room, around midnight. It shows no acute intracranial findings and no abnormal intracranial enhancement. He had a CT of the abdomen and pelvic with contrast done as well, that shows status post stent graft repair of an infrarenal abdominal aortic aneurysm with an apparent enhancement aneurysm sac suggesting an endoleak. No precontrast imaging with this study. Aneurysm sac measures 6.8 cm in diameter with no prior studies for comparison. Skin jerry in the right and left inguinal regions. There is a collection in the left inguinal region that measures up to 4 cm, may be within recent postoperative limits. Heterogeneous enhancement pattern in the kidneys of uncertain chronicity. He had a CT angiogram of the chest done as well for PE, that shows coronary artery calcification no evidence for pulmonary embolus. Scattered areas of atelectasis. No significant lung bases noted, as well as a small right pleural effusion. PAST MEDICAL HISTORY 1. Hypertension. 2. Hyperlipidemia. 3. Grade 1 follicular lymphoma. 4. Solitary pulmonary nodule. 5. Peripheral vascular disease. 6. Chronic obstructive pulmonary disease. 7. Major depressive disorder. 8. Diabetes mellitus type 2. 9. Irritable bowel syndrome. 10. Umbilical hernia repair in 2013. 11. Appendectomy. 12. Eye surgery in 2013. 13. Tonsillectomy. 14. Status post abdominal aortic aneurysm endovascular repair in 10/2016. 15. Anemia. 16. Hyperlipidemia. 17. Vitamin D deficiency. SOCIAL HISTORY The patient is apparently, according to medical records, and lives at home with his . He is a reformed smoker. He used to smoke one pack per day, quite a few months ago. No history of alcohol abuse or drug abuse that is documented. He is apparently retired. FAMILY HISTORY Unknown. Apparently the patient is adopted according to the medical record. ALLERGIES No known drug allergies. HOME MEDICATIONS As per medical reconciliation, include 1. Aspirin 81 mg p.o. daily. 2. Allopurinol 100 mg p.o. daily. 3. Hydrocodone acetaminophen 10/325 mg 1 tablet p.o. q.6 h. p.r.n. pain. 4. Tradjenta 5 mg p.o. daily. Unit #: [id number] #: [id number] Patient: LILLIAN ALBERT 5. Protonix 40 mg p.o. daily. 6. Rosuvastatin 20 mg p.o. daily. 7. Tamsulosin 0.4 mg p.o. daily. 8. Vitamin D3 50,000 units p.o. once weekly. 9. Albuterol sulfate inhalation q.4 h. p.r.n. 10. Ventolin inhaler 2 puffs inhalation b.i.d. p.r.n. 11. Alprazolam 1 mg p.o. b.i.d. p.r.n. 12. Eliquis 5 mg p.o. b.i.d. There is no documentation of any history of atrial fibrillation that I can find, including in the cardiology notes. 13. Carvedilol 3.125 mg p.o. q.12 h. 14. Duloxetine 60 mg p.o. daily. 15. Glucophage 1000 mg p.o. b.i.d. 16. Montelukast 10 mg p.o. at nighttime. 17. Rythmol 150 mg p.o. q.8 h. 18. Daliresp 500 mcg p.o. daily. REVIEW OF SYSTEMS Unable to obtain from the patient, given his mental status. PHYSICAL EXAMINATION VITALS: Temperature 102.2, t-max 102.7, pulse 101, respiratory rate 32, blood pressure 110/70, oxygen saturation 100%, height 5'10", weight 231 pounds, BMI 33. NEUROLOGIC EXAMINATION The patient is poorly responsive, on the ventilator, now off sedation since this morning, with abnormal responses neurologically to noxious stimuli. He is intubated. He has some mild sternal myoclonus noted that worsens with continued stimulation on exam. He is over breathing the vent. CRANIAL NERVES: Unable to evaluate kirby of vision. Eyes are dysconjugate. He has a positive doll's eyes, but dysconjugate gaze. Positive corneals that are equal but sluggish. Unable to assess sensation of face and scalp or strength of muscles of facial expression, but no asymmetry seen. Unable to assess hearing, tongue, uvula or palate, head turning or shoulder shrug. Neck appears to be supple. MOTOR: He has positive bilateral decerebrate posturing in response to noxious stimuli on exam. He also has positive triple flexion in response to noxious stimuli in the lower extremities. SENSORY: See above. No purposeful movement seen. GAIT/ROMBERG: Deferred. REFLEXES: Unable to elicit. COORDINATION: Unable to assess. DIAGNOSTIC STUDIES IMAGING: Please see above. LABORATORY: CK 254, cholesterol 88, triglycerides 103, LDL 36, HDL 23. Most recent troponin is 7.52, troponin max 8.93. White blood cell count 15.2, hemoglobin 8.4, hematocrit 26.1, platelet count 320, sodium 134, potassium 4, chloride 103, CO2 20, glucose 106, BUN 15, creatinine 1.6, estimated GFR 41, calcium 8, AST 468, ALT 201, alkaline phosphatase 89, total protein 6, albumin 2.9, lactic acid 2.8. Initial lactic acid was 5.8. Initial troponin less than 0.05. PT 13.4, INR 1.2, PTT 31.2. ASSESSMENT 1. Anoxic encephalopathy, status post arrest. 2. Non-Q myocardial infarction. Unit #: [id number] #: [id number] Patient: LILLIAN ALBERT 3. Resuscitated v-tac/v-fib arrest. 4. Acute hypoxic respiratory failure. 5. Questionable history of atrial fibrillation. The patient is on Eliquis. PLAN I discussed with Dr. Howard. We will monitor tonight. He is less than 24 hours from initial arrest, though exam is certainly concerning and is abnormal. Initial CT scanning is unremarkable. Will consider repeat imaging in the next 24 to 48 hours if no improvement is seen. At this time nothing to suggest acute stroke, seizure or status epilepticus or [employer] infection. Again, the patient has had a non-Q myocardial infarction and resuscitated arrest. Very concerned regarding prognosis, but we will need to give the patient some time. The patient currently is a full code. The family left last night and we are awaiting their return today. Certainly, code status does need to be discussed with the patient's given his current clinical condition. We will follow closely along with you. We thank you very much for allowing us to assist in the care of this patient. Dictated by... Christina Dooley A.P.R.N. for Padmini Salgado/matti TD: 11/03/2016 07:39 JOB #: [id number] CONSULTATION REPORT Page 1 of 1 X Christina Dooley APRN X CONSULTATION REPORT
--- NOTE | ~2016-11-01 | HP ---
Unit #: [id number] #: [id number] Patient: LILLIAN ALBERT [id number] [facility]. [place], [place] [address] [id number] MR#: [id number] NAME: LILLIAN ALBERT ROOM: CIC2 Age: 76 Sex: M Admission Date: 11/02/2016 : 1940 Attending Physician: Latisha Guido M.D. Primary Care Physician: Dayo Valle M.D. HISTORY AND PHYSICAL CHIEF COMPLAINT Unresponsive. HISTORY OF PRESENT ILLNESS Mr. Lillian Albert is a 76-year-old male who has multiple medical problems. He was recently discharged from [facility] after having abdominal aortic aneurysm repair done. It was complex endovascular repair of the abdominal aortic aneurysm with parallel endograft to the renal arteries bilaterally. The patient was discharged on 10/24/2016. The patient was doing well until yesterday, when he suddenly complained of shortness of breath and after that he passed out. The patient was resuscitated and was brought to the emergency room. The patient is being admitted to the intensive care unit. The patient is being evaluated in room 3 ICU. The patient is on the ventilator. The patient is unresponsive and having some myoclonic jerks. No family member is available at this time. Most of the history was taken from emergency room notes. I have reviewed the [facility] discharge summary. PAST MEDICAL HISTORY The patient has multiple medical history including 1. Hypertension. 2. Hyperlipidemia. 3. History of follicular lymphoma, grade 1. 4. History of solidary pulmonary nodule. 5. History of peripheral vascular disease. 6. History of chronic obstructive pulmonary disease. 7. History of major depressive disorder. 8. History of diabetes mellitus type 2. 9. History of hypertension. 10. History of irritable bowel syndrome. PAST SURGICAL HISTORY 1. Umbilical hernia repair in 2013. 2. Appendectomy in 1955. 3. Eye surgery in 2013. 4. Tonsillectomy in 1948. 5. Status post abdominal aortic aneurysm endovascular repair 10/2016. SOCIAL HISTORY The patient lives at home with his . He used to smoke one pack per day and quit a few months ago. He does not have any history of alcohol abuse or drug abuse. He is retired. FAMILY HISTORY Unit #: [id number] #: [id number] Patient: LILLIAN ALBERT The patient is adopted. ALLERGIES No known drug allergies. HOME MEDICATIONS 1. Aspirin 81 mg daily. 2. Zyloprim 100 mg daily. 3. Hydrocodone 10/325 mg 1 tablet q.6 h. p.r.n. 4. Tradjenta 5 mg daily. 5. Protonix 40 mg daily. 6. Crestor 20 mg daily. 7. Flomax 0.4 mg daily. 8. Vitamin D3 50,000 units q. weekly. 9. Albuterol sulfate q.4 h. 10. Ventolin inhaler 2 inhalations b.i.d. p.r.n. 11. Alprazolam 1 mg b.i.d. 12. Eliquis 5 mg b.i.d. 13. Coreg 3.125 mg q.12 h. 14. Cymbalta 60 mg daily. 15. Glucophage 1000 mg b.i.d. 16. Singulair 10 mg at bedtime. 17. Rythmol 150 mg q.8 h. 18. Daliresp 500 mcg daily. REVIEW OF SYSTEMS Not obtainable at this time. PHYSICAL EXAMINATION GENERAL: The patient is being evaluated in the ICU, room 2. VITALS: Blood pressure 110/60, respiratory rate 32, pulse 107, T-max 102.7. HEENT: The patient is intubated. Head is normocephalic. LUNGS: Fair air entry. Decreased at the bases. Bilateral mild rhonchi present. HEART: S1 and S2 positive. ABDOMEN: Nontender. Soft. Bowel sounds positive. EXTREMITIES: Edema 2+ present bilaterally. SKIN: Seems to be stable. DIAGNOSTIC STUDIES IMAGING: CT scan of the head without contrast was done, which shows no acute intracranial abnormalities. CTA of the chest was done. No pulmonary embolism. CT of the abdomen and pelvis was done, which shows the patient is status post stent graft repair of an infrarenal abdominal aortic aneurysm. Aneurysm sac measured 6.8 cm. Skin jerry are present in the right left inguinal region. LABORATORY: So far, sodium 131, potassium 3.4, chloride 99, BUN 10, creatinine 1.1, white blood cell count 19.5, hemoglobin 8.6, hematocrit 27.2, platelets 415. Urinalysis shows 2+ bacteria. Lactic acid is 5.8. Troponin elevated to 1.65. ASSESSMENT The patient is being admitted to the intensive care unit with the Unit #: [id number] #: [id number] Patient: LILLIAN ALBERT diagnoses of 1. Resuscitated v-tac arrest, status post shock, status post full (1) . The patient is on full ventilator at this time. 2. Acute non-q myocardial infarction. 3. Acute hypoxic respiratory failure on the ventilator. 4. Fever. 5. Possible urinary tract infection. 6. Possible aspiration. 7. Recent endovascular repair at [facility]. 8. Likely anoxic brain injury. 9. History of lymphoma. 10. Diabetes mellitus. 11. Hypotension, on pressors. 12. Shock. 13. Hyperlipidemia. PLAN Admit to intensive care unit. Dr. Mackay has been consulted for ventilator support. Broad spectrum IV antibiotics are being started. Bronchodilators are being started. Two-dimensional echocardiogram has been ordered. Dr. Harrison has been consulted. The patient has been started on aspirin 300 mg per rectum daily. Lovenox 1 mg per kg subcutaneous daily has been started. Dr. Harrison's notes and Dr. Chiang's notes have been reviewed. We will try to get in touch with the patient's . PROGNOSIS The patient's condition is critical and prognosis is poor. Dictated by Padmini Maria TD: 11/02/2016 12:29 JOB #: [id number] HISTORY AND PHYSICAL Page 1 of 1 X Latisha Guido MD X HISTORY AND PHYSICAL
--- NOTE | ~2016-11-01 | FU ---
[facility] Nutrition Therapy DATE: 11/09/16 Patient: LILLIAN ALBERT Physician: YUDITH Address: [address] [place] [address] Room/Bed: [address] [place] [address], Zip: [place] [address] Admit Date: 11/02/16 Date of : [birth year] Height: 5 10 Weight: 205 93.4 NUTRITION MONITORING/FOLLOW-UP: Reason: PT SEEN FOR FOLLOW-UP PT HAS BEEN PLACED ON COMFORT MEASURES ONLY. HOSPICE HAS BEEN CONSULTED 11/08/16 RD TO REMAIN AVAILABLE Respectfully, CRISTIAN WIN MS, RD, LD Food and Nutritional Services [facility] cc: client file
[~2016-11-01 21:48] MED LIST: ALPRAZOLAM PO; AMBIEN PO; HYDROCODON-ACE1 EAC9 PO; POTASSIUM1 UDCAP.SA PO
[2016-11-01 22:12] LABS: ARTERIAL BLD GAS O2 SATURATION 96.8 % (90.0-100.0); ARTERIAL BLOOD GAS CARBOXY HB 0.4 %sat (0.0-9.0); ARTERIAL BLOOD GAS HCO3 17.5 mmol/L; ARTERIAL BLOOD GAS MET HB 1.4 %sat (0.0-2.0); ARTERIAL BLOOD GAS pH 7.272 (7.350-7.450)
[2016-11-01 22:13] LABS: ARTERIAL DRAW? YES
[2016-11-01 22:14] LABS: BASOPHIL# 0.1 X10e3 (0-0.3); BASOPHIL% 0.7 % (0-2.5); EOSINOPHIL# 0.1 X10e3 (0-0.7); EOSINOPHIL% 0.5 % (0.0-7.0); HEMATOCRIT 27.2 % (38.0-50.0); HEMOGLOBIN 8.6 gm/dL (13.0-16.0); LYMPHOCYTE# 1.4 X10e3 (1.0-3.5); LYMPHOCYTE% 7.3 % (17.0-45.0); MEAN CELL VOLUME 94.7 FL (83-96); MEAN CORPUSCULAR HEMOGLOBIN 30.1 PG (28-34); MEAN CORPUSCULAR HGB CONC 31.7 g/dL (30-36); MEAN PLATELET VOLUME 7.8 FL (6.5-11.5); MONOCYTE# 1.1 X10e3 (0-1.0); MONOCYTE% 5.7 % (3.0-12.0); NEUTROPHIL# 16.8 X10e3 (1.5-7.1); NEUTROPHIL% 85.8 % (40-75); PLATELET COUNT 415 X10e3 (140-420); RED BLOOD COUNT 2.87 X10e (3.90-5.60); RED CELL DISTRIBUTION WIDTH 16.3 % (11.0-15.5); WHITE BLOOD COUNT 19.5 X10e3 (4.0-10.5)
[2016-11-01 22:14] LABS: ARTERIAL BLOOD GAS ALLEN TEST NORMAL; ARTERIAL BLOOD GAS ART SITE LEFT RADIAL; ARTERIAL BLOOD GAS DELIVERY VENT; ARTERIAL BLOOD GAS VENT MODE AC
[2016-11-01 22:15] LABS: DIFF IND YES
[2016-11-01 22:15] LABS: POC - CKMB 1.4 ng/mL (0.0-7.9); POC - TROPONIN <0.05 ng/mL (<=0.05)
[2016-11-01 22:19] LABS: INR 1.2; PARTIAL THROMBOPLASTIN TIME 31.2 SECONDS (23.5-31.3); PROTHROMBIN TIME (PATIENT) 13.4 SECONDS (10.0-11.7)
[2016-11-01 22:31] LABS: ALBUMIN SERUM 2.9 g/dL (3.5-5.0); BILIRUBIN, DIRECT 0.1 mg/dL (0.0-0.2); BILIRUBIN,INDIRECT 0.4 mg/dL (0.0-0.9); BILIRUBIN,TOTAL 0.5 mg/dL (0.2-2.0); BUN/CREATININE RATIO 9.09; CALCIUM SERUM 8.3 mg/dL (8.4-10.2); CREATININE SERUM 1.1 mg/dL (0.6-1.4); GLOM FILT RATE Estimated 64.4 mL/min (>60); POTASSIUM 3.4 mmol/L (3.5-5.1); PROTEIN TOTAL SERUM 6.1 g/dL (6.0-8.3)
[2016-11-01 22:49] LABS: ANISOCYTOSIS SL; HYPOCHROMIA SL; NUCLEATED RED BLOOD CELL 1 /100 (0); PLATELET ESTIMATE NORMAL (NORMAL); SMUDGE CELLS 2 /100
[2016-11-01 23:35] LABS: URINE SOURCE CLEAN CATCH
[2016-11-01 23:55] LABS: URINE COLOR YELLOW
[2016-11-01 23:56] LABS: URINE APPEARANCE SL CLOUDY; URINE GLUCOSE NORM (NEG); URINE KETONE 1+ (NEG); URINE LEUKOCYTE ESTERASE 3+ (NEG); URINE NITRATE POS (NEG); URINE PROTEIN 3+ (NEG); URINE SPECIFIC GRAVITY 1.015 (1.003-1.035)
[2016-11-01 23:57] LABS: URINE BILIRUBIN NEG (NEG); URINE BLOOD 4+ (NEG); URINE UROBILINOGEN 4 MG/DL (NEG)
[2016-11-01 23:58] LABS: CULTURE INDICATED? YES; URBCS1 AUWI 25-50 /[HPF] (0-2); URINE BACTERIA AUWI 2+ (NEGATIVE); URINE SQUAMOUS EPITHELIAL CELL FEW /[HPF]
[2016-11-02 01:42] LABS: POC - CKMB 10.6 ng/mL (0.0-7.9); POC - TROPONIN 1.65 ng/mL (<=0.05)
[2016-11-02] MEDS ORDERED: ASPIRIN81 M2 PO (04:09)
[2016-11-02] MEDS ORDERED: ZYLOPRIM100 MG PO (04:14)
[2016-11-02] MEDS ORDERED: HYDROCODON-ACE1 EAC5 PO (04:15)
[2016-11-02] MEDS ORDERED: TRADJENTA5 MG PO (04:15)
[2016-11-02] MEDS ORDERED: PROTONIX PO (04:15)
[2016-11-02] MEDS ORDERED: CRESTOR10 MG PO (04:16)
[2016-11-02] MEDS ORDERED: VITAMIN D350000 UNIT PO (04:16)
[2016-11-02] MEDS ORDERED: FLOMAX0.4 M1 PO (04:16)
[2016-11-02] MEDS ORDERED: ALBUTEROL2.5 MG/3 M INH (04:17)
[2016-11-02] MEDS ORDERED: ALBUTEROL17 GM INH (04:17)
[2016-11-02] MEDS ORDERED: ALPRAZOLAM1 MG PO (04:18)
[2016-11-02] MEDS ORDERED: ELIQUIS5 MG PO (04:18)
[2016-11-02] MEDS ORDERED: COREG3.125 MG PO (04:19)
[2016-11-02] MEDS ORDERED: MONTELUKAST SOD10 MG PO (04:19)
[2016-11-02] MEDS ORDERED: DULOXETINE HCL60 M1 PO (04:19)
[2016-11-02] MEDS ORDERED: METFORMIN PO (04:19)
[2016-11-02] MEDS ORDERED: RYTHMOL150 MG PO (04:20)
[2016-11-02] MEDS ORDERED: DALIRESP500 MCG PO (04:20)
[2016-11-02 04:26] LABS: ARTERIAL BLD GAS O2 SATURATION 97.2 % (90.0-100.0); ARTERIAL BLOOD GAS CARBOXY HB 0.4 %sat (0.0-9.0); ARTERIAL BLOOD GAS MET HB 1.3 %sat (0.0-2.0); ARTERIAL BLOOD GAS PCO2 32.9 mmHg (35.0-45.0); ARTERIAL BLOOD GAS pH 7.371 (7.350-7.450)
[2016-11-02 04:29] LABS: ARTERIAL BLOOD GAS ALLEN TEST NORMAL; ARTERIAL BLOOD GAS ART SITE RIGHT RADIAL; ARTERIAL BLOOD GAS DELIVERY VENT; ARTERIAL BLOOD GAS VENT MODE AC; ARTERIAL DRAW? YES
[2016-11-02 08:06] LABS: ALBUMIN SERUM 2.9 g/dL (3.5-5.0); BILIRUBIN,TOTAL 1.5 mg/dL (0.2-2.0); BUN/CREATININE RATIO 9.37; CREATININE SERUM 1.6 mg/dL (0.6-1.4)
[2016-11-02 08:11] LABS: BASOPHIL# 0.1 X10e3 (0-0.3); BASOPHIL% 0.6 % (0-2.5); HEMATOCRIT 26.1 % (38.0-50.0); HEMOGLOBIN 8.4 gm/dL (13.0-16.0); LYMPHOCYTE# 0.8 X10e3 (1.0-3.5); MEAN CELL VOLUME 93.1 FL (83-96); MEAN CORPUSCULAR HGB CONC 32.2 g/dL (30-36); MEAN PLATELET VOLUME 7.6 FL (6.5-11.5); MONOCYTE# 0.7 X10e3 (0-1.0); MONOCYTE% 4.8 % (3.0-12.0); NEUTROPHIL# 13.6 X10e3 (1.5-7.1); NEUTROPHIL% 89.6 % (40-75); PLATELET COUNT 320 X10e3 (140-420); RED CELL DISTRIBUTION WIDTH 16.5 % (11.0-15.5); WHITE BLOOD COUNT 15.2 X10e3 (4.0-10.5)
[2016-11-02 08:16] LABS: DIFF IND NO
[2016-11-02 08:22] LABS: %MB 7.5 % (0.0-4.0); MB 18.5 ng/ml
[2016-11-02 12:55] LABS: CHOLESTEROL 80 mg/dL (0-200); HDL CHOLESTEROL 23 mg/dL (29-75); LDL CHOLESTEROL 36 mg/dL (-130); LDL/HDL RATIO 2 RATIO (0-4); TRIGLYCERIDES 103 mg/dL (10-160)
[2016-11-02 13:15] LABS: MB 15.2 ng/ml
[2016-11-03 03:58] LABS: ARTERIAL BLD GAS O2 SATURATION 97.1 % (90.0-100.0); ARTERIAL BLOOD GAS CARBOXY HB 0.7 %sat (0.0-9.0); ARTERIAL BLOOD GAS HCO3 19.6 mmol/L; ARTERIAL BLOOD GAS MET HB 1.1 %sat (0.0-2.0); ARTERIAL BLOOD GAS PCO2 29.7 mmHg (35.0-45.0); ARTERIAL BLOOD GAS pH 7.429 (7.350-7.450)
[2016-11-03 03:59] LABS: ARTERIAL BLOOD GAS ALLEN TEST NORMAL; ARTERIAL BLOOD GAS ART SITE RIGHT RADIAL; ARTERIAL BLOOD GAS DELIVERY VENT; ARTERIAL BLOOD GAS VENT MODE AC; ARTERIAL DRAW? YES
[2016-11-03 06:25] LABS: BASOPHIL# 0.1 X10e3 (0-0.3); BASOPHIL% 0.4 % (0-2.5); EOSINOPHIL% 0.1 % (0.0-7.0); LYMPHOCYTE# 0.5 X10e3 (1.0-3.5); LYMPHOCYTE% 3.1 % (17.0-45.0); MEAN CELL VOLUME 92.7 FL (83-96); MEAN CORPUSCULAR HEMOGLOBIN 29.9 PG (28-34); MEAN CORPUSCULAR HGB CONC 32.3 g/dL (30-36); MEAN PLATELET VOLUME 8.3 FL (6.5-11.5); MONOCYTE# 0.6 X10e3 (0-1.0); MONOCYTE% 3.8 % (3.0-12.0); NEUTROPHIL# 15.1 X10e3 (1.5-7.1); NEUTROPHIL% 92.6 % (40-75); PLATELET COUNT 350 X10e3 (140-420); RED BLOOD COUNT 3.02 X10e (3.90-5.60); RED CELL DISTRIBUTION WIDTH 16.6 % (11.0-15.5); WHITE BLOOD COUNT 16.3 X10e3 (4.0-10.5)
[2016-11-03 06:27] LABS: DIFF IND NO
[2016-11-03 11:06] LABS: ALBUMIN SERUM 2.8 g/dL (3.5-5.0); BUN/CREATININE RATIO 12.63; CALCIUM SERUM 7.7 mg/dL (8.4-10.2); CREATININE SERUM 1.9 mg/dL (0.6-1.4); GLOM FILT RATE Estimated 33.3 mL/min (>60); PROTEIN TOTAL SERUM 6.1 g/dL (6.0-8.3)
[2016-11-04 05:32] LABS: BASOPHIL# 0.1 X10e3 (0-0.3); BASOPHIL% 0.6 % (0-2.5); EOSINOPHIL# 0.1 X10e3 (0-0.7); EOSINOPHIL% 0.5 % (0.0-7.0); HEMATOCRIT 26.4 % (38.0-50.0); HEMOGLOBIN 8.7 gm/dL (13.0-16.0); LYMPHOCYTE# 0.7 X10e3 (1.0-3.5); LYMPHOCYTE% 5.8 % (17.0-45.0); MEAN CELL VOLUME 92.5 FL (83-96); MEAN CORPUSCULAR HEMOGLOBIN 30.3 PG (28-34); MEAN CORPUSCULAR HGB CONC 32.8 g/dL (30-36); MEAN PLATELET VOLUME 8.8 FL (6.5-11.5); MONOCYTE# 0.6 X10e3 (0-1.0); MONOCYTE% 5.1 % (3.0-12.0); NEUTROPHIL# 10.1 X10e3 (1.5-7.1); PLATELET COUNT 320 X10e3 (140-420); RED BLOOD COUNT 2.86 X10e (3.90-5.60); RED CELL DISTRIBUTION WIDTH 16.7 % (11.0-15.5); WHITE BLOOD COUNT 11.5 X10e3 (4.0-10.5)
[2016-11-04 05:45] LABS: ALBUMIN SERUM 2.6 g/dL (3.5-5.0); BILIRUBIN,TOTAL 1.5 mg/dL (0.2-2.0); BUN/CREATININE RATIO 16.87; CALCIUM SERUM 7.4 mg/dL (8.4-10.2); CREATININE SERUM 1.6 mg/dL (0.6-1.4); DIFF IND NO; POTASSIUM 3.2 mmol/L (3.5-5.1); PROTEIN TOTAL SERUM 5.8 g/dL (6.0-8.3)
[2016-11-05 03:59] LABS: HEMATOCRIT 27.7 % (38.0-50.0); HEMOGLOBIN 9.1 gm/dL (13.0-16.0); MEAN CELL VOLUME 91.7 FL (83-96); MEAN CORPUSCULAR HEMOGLOBIN 30.1 PG (28-34); MEAN CORPUSCULAR HGB CONC 32.8 g/dL (30-36); MEAN PLATELET VOLUME 8.3 FL (6.5-11.5); RED BLOOD COUNT 3.02 X10e (3.90-5.60); RED CELL DISTRIBUTION WIDTH 16.8 % (11.0-15.5); WHITE BLOOD COUNT 10.9 X10e3 (4.0-10.5)
[2016-11-05 04:33] LABS: ALBUMIN SERUM 2.6 g/dL (3.5-5.0); BILIRUBIN,TOTAL 0.9 mg/dL (0.2-2.0); BUN/CREATININE RATIO 18.33; CALCIUM SERUM 7.3 mg/dL (8.4-10.2); CREATININE SERUM 1.2 mg/dL (0.6-1.4); PROTEIN TOTAL SERUM 6.1 g/dL (6.0-8.3)
[2016-11-05 04:34] LABS: POTASSIUM 2.8 mmol/L (3.5-5.1)
[2016-11-06 04:34] LABS: BASOPHIL# 0.1 X10e3 (0-0.3); BASOPHIL% 0.6 % (0-2.5); EOSINOPHIL# 0.2 X10e3 (0-0.7); EOSINOPHIL% 1.7 % (0.0-7.0); HEMATOCRIT 29.3 % (38.0-50.0); HEMOGLOBIN 9.6 gm/dL (13.0-16.0); LYMPHOCYTE# 0.9 X10e3 (1.0-3.5); LYMPHOCYTE% 9.7 % (17.0-45.0); MEAN CELL VOLUME 91.4 FL (83-96); MEAN CORPUSCULAR HGB CONC 32.8 g/dL (30-36); MEAN PLATELET VOLUME 8.5 FL (6.5-11.5); MONOCYTE# 0.7 X10e3 (0-1.0); MONOCYTE% 7.6 % (3.0-12.0); NEUTROPHIL# 7.4 X10e3 (1.5-7.1); NEUTROPHIL% 80.4 % (40-75); PLATELET COUNT 352 X10e3 (140-420); RED CELL DISTRIBUTION WIDTH 16.8 % (11.0-15.5); WHITE BLOOD COUNT 9.2 X10e3 (4.0-10.5)
[2016-11-06 04:36] LABS: DIFF IND NO
[2016-11-06 04:55] LABS: CALCIUM SERUM 7.4 mg/dL (8.4-10.2); GLOM FILT RATE Estimated 72.3 mL/min (>60)
== END 2016-11-10 12:26 | disposition expired | DRG 207 ==
LOC: CED 21:48 → CEDOF 11-02 01:27 → CICCU2 11-02 01:27 → CED 11-02 01:37 → CEDOF 11-02 01:37 → CICCU2 11-02 04:57 → C2A 11-07 14:08
PROVIDERS: Emergency Medicine; Hospitalist; Internal Medicine; Internal Medicine Cardiovascular Disease; Internal Medicine Pulmonary Disease; Physician Assistant Medical
PROC: B246YZZ Ultrasonography of Right and Left Heart using Other Contrast (ICD-10-PCS; principal; 2016-11-02)
PROC: 5A1955Z Respiratory Ventilation, Greater than 96 Consecutive Hours (ICD-10-PCS; 2016-11-02)
PROC: 05H533Z Insertion of Infusion Device into Right Subclavian Vein, Percutaneous Approach (ICD-10-PCS; 2016-11-02)
PROC: 0BH17EZ Insertion of Endotracheal Airway into Trachea, Via Natural or Artificial Opening (ICD-10-PCS; 2016-11-02)
DX: J96.01 Acute respiratory failure with hypoxia (principal); I21.4 Non-ST elevation (NSTEMI) myocardial infarction; I49.01 Ventricular fibrillation; J69.0 Pneumonitis due to inhalation of food and vomit; K72.00 Acute and subacute hepatic failure without coma; G93.1 Anoxic brain damage, not elsewhere classified; R78.81 Bacteremia; I50.22 Chronic systolic (congestive) heart failure; I47.2 Ventricular tachycardia; N39.0 Urinary tract infection, site not specified; E78.5 Hyperlipidemia, unspecified; E11.51 Type 2 diabetes mellitus with diabetic peripheral angiopathy without gangrene; J44.9 Chronic obstructive pulmonary disease, unspecified; I11.0 Hypertensive heart disease with heart failure; F32.9 Major depressive disorder, single episode, unspecified; E55.9 Vitamin D deficiency, unspecified; Z87.891 Personal history of nicotine dependence; Z85.72 Personal history of non-Hodgkin lymphomas; Z90.49 Acquired absence of other specified parts of digestive tract; I08.1 Rheumatic disorders of both mitral and tricuspid valves; Z66 Do not resuscitate; Z51.5 Encounter for palliative care; F90.9 Attention-deficit hyperactivity disorder, unspecified type; K58.9 Irritable bowel syndrome, unspecified
CPT/HCPCS: 31500; 36415; 36600; 70450; 70460; 71010; 71275; 74000; 74177; 80048; 80053; 80061; 80076; 80202; 81003; 82550; 82553; 82803; 83605; 83735; 84484; 85025; 85027; 85610; 85730; 86850; 86900; 86901; 87040; 87077; 87086; 87088; 87186; 92950; 93005; 93306; 94002; 94003; 94640; 94760; 94761; 96361; 96365; 96366; 96375; 99291; C9113; J0171; J0282; J0330; J1650; J1940; J1953; J2060; J2185; J2270; J2543; J3370; J3475; Q9967